=== PATIENT | female | born 1990 | race Hispanic/Latino ===

== ENCOUNTER 2018-06-06 10:59 | Day surgery (SDC) | payer BC, OTHER ==
[2018-06-05 14:47] LABS: Urine Appearance CLEAR; Urine Bilirubin NEGATIVE (NEG); Urine Blood NEGATIVE (NEG); Urine Color YELLOW; Urine Glucose 3+ (NEG); Urine Protein NEGATIVE (NEG); Urine Specific Gravity >=1.030 (1.005-1.030); Urine pH 6.5 (5.0-7.0)
[2018-06-05 14:49] LABS: Urine Microscopic Reflex NO UMIC
[2018-06-05 14:56] LABS: BUN Blood Urea Nitrogen 8 mg/dL (7-18); Bicarbonate 25 mmol/L (21-32); Glucose Level 250 mg/dL (74-106); Potassium 3.7 mmol/L (3.5-5.1); Sodium Level 144 mmol/L (136-145)
[2018-06-05 15:00] LABS: Protime INR 1.03
[2018-06-05 15:01] LABS: Absolute Lymphocytes (CBC) 1.2 K/uL (0.7-4.9); Absolute Monocytes 0.4 K/uL (0.1-1.3); Absolute Neutrophil 6.4 K/uL (1.8-8.0); Basophils % 0.3 % (0-1.3); Eosinophils % 0.8 % (0-4.4); Hematocrit 31.1 % (36.0-45.0); Lymphocytes % 14.5 % (15.3-44.8); MPV 8.1 fL (7.6-11.3); Monocytes % 4.9 % (3.3-12.3); RBC Red Blood Cell Count 3.76 M/uL (3.86-4.86)
--- NOTE | 2018-06-05 20:49 | EKG ---
Test Date: 2018-06-05 Test Time: 14:00:48 Motorbike Courier: ZAY MEASUREMENT RESULTS: Intervals: Rate: 111 WA: 124 QRSD: 88 QT: 330 QTc: 448 [place]: P: 54 WA: 124 QRS: 29 T: 3 INTERPRETIVE STATEMENTS: Sinus tachycardia Otherwise normal ECG No previous ECG available for comparison Electronically Signed On 06-05-18 20:47:47 PRODUCT MANAGEMENT CONSULTANT by Marcail Peraza
--- OUTSIDE RECORDS SUMMARY | 2018-06-06 11:02 | XMS REPORT | Clinical Summary ---
:1990 Author Organization [facility] Address [address] [place] [address] Care Team Providers Name Role Phone Asked, No Pcp Primary Care Provider Unavailable Allergies No Known Allergies Medications No known medications Active Problems No known active problems Family History Relation Name Status Comments Father Alive Mother Alive Social History Tobacco Use Types Packs/Day Years Used Date Never Smoker Smokeless Tobacco: Never Used Alcohol Use Drinks/Week oz/Week Comments No Sex Assigned at Date Recorded Not on file Job Start Date Occupation Industry Not on file Not on file Not on file Travel History Travel Start Travel End No recent travel history available. Last Filed Vital Signs Not on file Plan of Treatment Health Maintenance Due Date Last Done Comments CERVICAL CANCER SCREENING 2012 INFLUENZA VACCINE 12/07/2017 Results Not on fileafter 06/05/2017 Insurance Payer Benefit Plan / Group Subscriber ID Type Phone Address [facility] COMMERCIAL HMO/POS/PPO xxxxxxxxx PPO Advance Directives Patient has advance care planning documents on file. For more information, please contact:[phone] [place] [address]
[2018-06-06] MEDS ORDERED: Ringers Lactate 1,000 ML IV ONE ×2 (11:14→14:08)
[2018-06-06] MEDS ORDERED: GENTAMICIN 100 MG/100 ML BAG 100 ML IV ONE (11:14)
[2018-06-06] MEDS ORDERED: CEFAZOLIN 1GM (PREMIX IV) 1 GM/50 ML BAG ONE (11:58)
[2018-06-06] MEDS ORDERED: Phenylephrine HCl 10 MG/ML 1 ML VIAL ONE (12:10)
[2018-06-06] MEDS ORDERED: NS 0.9% VIAL 10 ML ONE (12:10)
[2018-06-06 13:48] VITALS: O2SAT 100
[2018-06-06 14:15] LABS: Hematocrit 27.1 % (36.0-45.0)
[2018-06-06 15:02] VITALS: TEMP 98.1
[2018-06-06] MEDS ORDERED: TRAMADOL HCL 50 MG TAB ONE (15:43)
[2018-06-06 15:55] VITALS: BP 102/54
--- NOTE | 2018-06-07 01:11 | OP ---
Date of Procedure: 06/06/2018 Surgeon: Sterling Quinonez MD Pressure Controller: Jignesh Henriquez MD Anesthesiologist: Dr. Dillon. Preoperative Diagnosis: Infected [place] gland. Postoperative Diagnosis: Infected [place] gland. Procedure Performed: Excision of infected [place] gland, cystoscopy. The patient complicated with lots of venous distention, pressure from , spinal anesthesia and bleeding from the area. Everything had to be oversewn. Dr. Henriquez, general surgeon came in and helped with oversewing. Winters catheter was placed prior to surgery. Cystoscopy done and showed that Bladder and urethra were normal. Palpation of the gland show no pus seen coming through the urethra like a diverticulum. Anesthesia: Spinal. Estimated Blood Loss: 400 cc. Replacement: IV fluids. Past Specimen: [place] gland. Drains: Winters catheter. A stat H and H ordered in recovery room. Indication: This is a pleasant 27-year-old lady sent to me by Dr. Boone for infected [place] gland. She was placed on antibiotics without any resolution, was deemed necessary for this to be drained or excised due to the chance of infection getting worse and septic. It was red and inflamed. The case was discussed with Dr. Boone prior. She okayed doing the case in a week or so and that she will be in town for backup, so the case was proceeded. Procedure In Detail: The patient was given all general information, alternatives, and risks, and taken to the operative room, placed in a supine lithotomy position. Area was prepped and draped. Weighted vaginal speculum was placed. Cystoscopy was performed with a 21-Nigerien and 30-degree lens showing normal urethra. No communication with the urethra. Bladder was scoped. Bladder appeared normal. Both orifices were in their normal anatomical position, and as mentioned, urethra normal, and make an incision into the gland. Immediately lots of mucosal bleeding seen and trying to cauterize the mucosa site only bleeds more, not able to cauterize at all. We were able to culture some smegma coming from the gland for anaerobic and aerobic , and attempting to excision the gland again, rest would not respond to cautery , used it to find a lot of inflammation and 32-week and spinal anesthesia, we managed to get the gland excised, lots of venous bleeding, however. We then tried to oversew these. The exposure was poor. So we called Dr. Henriquez to help with the exposure and suturing, came in and sutured several bleeders, they just would not respond to cautery. Eventually got amount of control with excellent help, and place some Surgicel in the wound, closed over the mucosa using 2-0 chromic sutures. Case was then terminated and we placed a vaginal pack with normal saline packing and peripad and mesh panties and send the patient to recovery room where a stat H and H will be performed. Also discussed with Dr. Boone, her OB and Dr. Aquino, the hospitalist, possible observing her overnight just due to the amount of blood loss. However, Dr. Aquino is not able to admit OB patients past [address] Boone did not want to admit the patient and I certainly not qualified to admit OB patient. So if she is stable in recovery room, she will be sent home and follow up in about a week, remove her Winters catheter. IVVIEN/LYNNE Voice ID: [id number] Report ID: [id number] GRADY
== END 2018-06-06 16:02 | disposition home or self-care (01) ==
LOC: OR 10:59
PROVIDERS: ATTEND Urology
PROC: 0UBL0ZZ Excision of Vestibular Gland, Open Approach (ICD-10-PCS; principal; 2018-06-06 11:00)
DX: O23.23 Infections of urethra in pregnancy, third trimester (principal); Z3A.32 32 weeks gestation of pregnancy; N99.61 Intraoperative hemorrhage and hematoma of a genitourinary system organ or structure complicating a genitourinary system procedure
CPT/HCPCS: 36415; 80048; 81003; 85014; 85018; 85025; 85610; 85730; 87070; 87075; 87086; 87088; 87205; 88304; 88305; 93005; J0690; J1580; J2370

== ENCOUNTER 2018-07-20 10:29 | Inpatient (IN) | payer BC, OTHER ==
--- OUTSIDE RECORDS SUMMARY | 2018-07-20 10:31 | XMS REPORT | Clinical Summary ---
:1990 Author Organization [facility] Address [address] [place] [address] Care Team Providers Name Role Phone Asked, [...] INFLUENZA VACCINE 12/07/2017 Results Not on fileafter 07/19/2017 Insurance Payer Benefit Plan / Group Subscriber ID Type Phone Address [facility] COMMERCIAL HMO/POS/PPO xxxxxxxxx PPO Advance Directives Patient has advance care planning documents on file. For more information, please contact:[phone] [place] [address]
[2018-07-20] MEDS ORDERED: METHYLERGONOVINE 0.2MG/ML AMP IM PRN (10:59)
[2018-07-20] MEDS ORDERED: Ringers Lactate 1,000 ML IV PRN (10:59)
[2018-07-20] MEDS ORDERED: BUTORPHANOL 1 MG/ML INJ IV PRN (10:59)
[2018-07-20] MEDS ORDERED: CARBOPROST TROME 250 MCG/ML IM PRN (10:59)
[2018-07-20] MEDS ORDERED: PROMETHAZINE 25 MG/ML VIAL IV PRN (10:59)
[2018-07-20] MEDS ORDERED: Ringers Lactate 1,000 ML IV SCH (11:00)
[2018-07-20] MEDS ORDERED: OXYTOCIN/LR 20 UNIT/1,000 ML BAG IV SCH (11:00)
[2018-07-20 11:27] VITALS: BMI 36.1
[2018-07-20 11:32] LABS: RPR Titer ND
--- NOTE | 2018-07-20 11:32 | P.OBGYNHP ---
Certification for Inpatient Patient admitted to: Inpatient With expected LOS: >2 Midnights Patient will require the following post-hospital care: None Practitioner: I am a practitioner with admitting privileges, knowledge of patient current condition, hospital course, and medical plan of care. Services: Services provided to patient in accordance with Admission requirements found in Title 42 Section 412.3 of the Code of Federal Regulations Patient History Date of Service: 07/20/18 Reason for admission: LABOR History of Present Illness: Patient is a 28-year-old who presents at 38 weeks and 3 days gestation active labor. The patient began having contractions at 6 this morning and they worsened in severity. She presented to labor and delivery was found to be 7 cm dilated. She is intact. Denies leakage of fluid. Denies vaginal bleeding. Reports good movements. care is been complicated by a short inter interval prior history of gestational diabetes. She has also been found to have polyhydramnios which has improved. She also had a Dustin's gland duct cyst which was excised about 6 weeks ago. Rh positive. She was seen a month them for cares well. She had read current ultrasounds done. There were no recommendations for early delivery. She had noninvasive testing performed which revealed low risk male . GBS is negative. See record for further details. Allergies No Known Allergies Allergy (Verified 06/05/18 13:50) Home Medications: Vitamin [ VITAMIN*] 1 tab PO DAILY 12/16/14 Cephalexin [Keflex] 500 mg PO Q6HR 06/05/18 - Past Medical/Surgical History Diabetic: No -: GDM -: NVD 2011, 2014, 2017 - Family History Mother -: Diabetes Notes: gestational diabetes - Social History Alcohol use: No CD- Drugs: No Caffeine use: No Review of Systems 10-point ROS is otherwise unremarkable Physical Examination - Vital Signs Blood Pressure: 134/83 Pulse: 81 Respirations: 18 - General General: Alert, Oriented x3, Severe distress HEENT: Atraumatic Neck: Supple Respiratory: Normal air movement Cardiovascular: Edema (+2 bilaterally) Breasts: Normal configuration, Normal contours, Symmetrical Gastrointestinal: Other (Gravid) Integumentary: No rashes, No breakdown Neurological: Normal gait, Normal speech - Female Pelvic External genitalia: Normal Vagina: Normal, [place], Moist, Other (Gland excision is healed) Uterus: Gravid Adnexa: Unable to evaluate - Obstetrics heart rate tracing: Category 2 Contractions: Frequency (Every 3 min) Amniotic membrane: Intact Assessment and Plan - Plan Patient is a 28-year-old 4 para 3003 who presents at 38 weeks and 3 days gestation in active labor. care is been complicated by a short inter interval, polyhydramnios, Dustin duct cyst excision, anemia, and history of gestational diabetes. She has also been followed closely due to possible development of preeclampsia. She was here yesterday for preeclampsia evaluation. Was found to be negative. She has bilateral pedal edema. Blood pressures have been in the normal range. Then there has been trace proteinuria. GBS swab was negative. Patient would like to have an epidural placed. Will perform rupture of membranes after epidural is in place. Anticipate vaginal . Discharge Plan: Home Plan to discharge in: 48 Hours - Advance Directives Does patient have a Living Will: No Does patient have a Durable POA for Healthcare: No
[2018-07-20] MEDS ORDERED: ROPIVACAINE HCL 2 MG/ML 100ML IV ONE (11:41)
[2018-07-20] MEDS ORDERED: ROPIVACAINE HCL 20 ML ONE (11:47)
[2018-07-20] MEDS ORDERED: FENTANYL CITR 100 MCG/2 ML ONE (11:47)
[2018-07-20 11:48] LABS: Absolute Lymphocytes (CBC) 1.6 K/uL (0.7-4.9); Absolute Monocytes 0.4 K/uL (0.1-1.3); Absolute Neutrophil 4.3 K/uL (1.8-8.0); Basophils % 0.6 % (0-1.3); Eosinophils % 0.9 % (0-4.4); Lymphocytes % 25.3 % (15.3-44.8); MPV 8.3 fL (7.6-11.3); Monocytes % 5.6 % (3.3-12.3); RBC Red Blood Cell Count 3.48 M/uL (3.86-4.86)
[2018-07-20] MEDS ORDERED: LIDOCAINE 1% 20 ML MDV ONE (15:47)
[2018-07-20] MEDS ORDERED: METHYLERGONOVINE 0.2 MG TAB PO PRN (15:49)
[2018-07-20] MEDS ORDERED: ONDANSETRON 4 MG (ODT) TAB PO PRN (15:49)
[2018-07-20] MEDS ORDERED: BISACODYL 10 MG RECTAL SUPP RECT PRN (15:49)
[2018-07-20] MEDS ORDERED: DOCUSATE NA/SENNA CONC 1 TAB PO PRN (15:49)
[2018-07-20] MEDS ORDERED: ACETAMINOPHEN 500 MG TAB PO PRN (15:49)
--- NOTE | 2018-07-20 15:56 | P.OP ---
Date of Service: 07/20/18 Findings and Operative Technique Patient delivered a viable male in cephalic presentation on 07/20/18 at _ ____ . Once infant head was delivered a mild shoulder dystocia was then countered and make Tucker procedure was performed. was then delivered without difficulty. Nose and mouth was then suctioned with a suction bulb. Cord was clamped and cut. Infant was placed on mother's abdomen for skin to skin bonding. Cord blood was obtained. Placenta was then delivered with gentle traction. Placenta will be sent for path. Perineum was inspected and no lacerations were noted. Estimated blood loss was 200 cc. Fundus is palpated and found to be firm. Apgars were 9 and 10. Estimated weight was found to be . 1st stage of labor was . 2nd stage of labor was . Both mom and baby are doing well. The epidural will be discontinued. Routine care will be provided.
[2018-07-20] MEDS ORDERED: HEMORRHOIDAL SUPPOS PR PRN (16:01)
[2018-07-20] MEDS ORDERED: Ringers Lactate 2,000 ML IV ONE (18:16)
[2018-07-20] MEDS: IBUPROFEN 200 MG TAB PO PRN (20:20)
[2018-07-20 20:53] LABS: RPR (Rapid Plasma Reagin) NON-REACT (NON-REACT)
[2018-07-20] MEDS: Oxycodone HCl/Acetaminophen 1 TAB TAB PO PRN (23:28)
[2018-07-21] MEDS: Oxycodone HCl/Acetaminophen 1 TAB TAB PO PRN (03:47)
[2018-07-21 07:00] LABS: Absolute Lymphocytes (CBC) 2.2 K/uL (0.7-4.9); Absolute Monocytes 0.5 K/uL (0.1-1.3); Absolute Neutrophil 6.2 K/uL (1.8-8.0); Basophils % 0.7 % (0-1.3); Eosinophils % 1.1 % (0-4.4); Hematocrit 21.6 % (36.0-45.0); Lymphocytes % 24.1 % (15.3-44.8); MPV 8.3 fL (7.6-11.3); Monocytes % 5.9 % (3.3-12.3); RBC Red Blood Cell Count 2.89 M/uL (3.86-4.86)
[2018-07-21] MEDS: FERROUS SULFATE 325 MG TAB PO SCH (09:30)
[2018-07-21] MEDS: IBUPROFEN 200 MG TAB PO PRN (09:30)
[2018-07-21 16:59] VITALS: BP 130/77; TEMP 98.9
[2018-07-26 20:33] LABS: HBsAG Nonreactive (Nonreactive)
== END 2018-07-21 18:20 | disposition home or self-care (01) | DRG 807 ==
LOC: RAD 10:29 → 2ND-WC 10:58
PROVIDERS: ADMIT Student in an Organized Health Care Education/Training Program; ATTEND Student in an Organized Health Care Education/Training Program
PROC: 10E0XZZ Delivery of Products of Conception, External Approach (ICD-10-PCS; principal; 2018-07-20)
DX: O99.02 Anemia complicating childbirth (principal); Z37.0 Single live birth; D64.9 Anemia, unspecified; O24.420 Gestational diabetes mellitus in childbirth, diet controlled; O40.3XX0 Polyhydramnios, third trimester, not applicable or unspecified; O12.24 Gestational edema with proteinuria, complicating childbirth; O66.0 Obstructed labor due to shoulder dystocia; Z3A.38 38 weeks gestation of pregnancy
CPT/HCPCS: 36415; 85014; 85025; 86592; 86901; 87340; J0595; J2210; J2550; J2590; J2795; J3010